=== PATIENT | male | born 1990 | race African-American/Black ===

== ENCOUNTER 2017-08-28 17:37 | Emergency (ER) | payer OTHER, SELFPAY ==
[2017-08-28] MEDS ORDERED: AMOXicillin 250 MG CAP ONE (18:42)
== END 2017-08-28 18:47 | disposition home or self-care (01) ==
LOC: BURERS 17:37
DX: K02.9 Dental caries, unspecified (principal); I10 Essential (primary) hypertension; E78.5 Hyperlipidemia, unspecified; J45.909 Unspecified asthma, uncomplicated; F17.210 Nicotine dependence, cigarettes, uncomplicated; Z79.899 Other long term (current) drug therapy
CPT/HCPCS: 99283

== ENCOUNTER 2020-08-15 04:13 | Emergency (ER) | payer OTHER ==
[2020-08-15] MEDS ORDERED: Ondansetron ODT 4 MG TAB ONE (04:46)
[2020-08-16 08:28] LABS: SARS-CoV-2 PCR by NAA Not Detected (NotDetected)
== END 2020-08-15 05:00 | disposition home or self-care (01) ==
LOC: BURERS 04:13
DX: B34.9 Viral infection, unspecified (principal); Z20.822 Contact with and (suspected) exposure to COVID-19; E78.5 Hyperlipidemia, unspecified; E78.00 Pure hypercholesterolemia, unspecified; I10 Essential (primary) hypertension; J45.909 Unspecified asthma, uncomplicated; F17.210 Nicotine dependence, cigarettes, uncomplicated; Z79.899 Other long term (current) drug therapy
CPT/HCPCS: 87081; 87430; 87635; 87804; 99284; Q0162; U0003; U0005